=== PATIENT | female | born 1970 | race Two or more races ===

== ENCOUNTER → 2017-01-28 | Outpatient (REF) | payer MEDICAID, OTHER ==
[2017-01-28 13:38] LABS: ALBUMIN 3.8 GM/DL (3.2-5.2); ALBUMIN/GLOBULIN RATIO 1.12 (1.00-1.93); ALKALINE PHOSPHATASE 52 U/L (45-117); ALT/SGPT 24 U/L (12-78); ANION GAP 6 MEQ/L (8-16); AST/SGOT 10 U/L (15-37); BILIRUBIN,TOTAL 0.4 MG/DL (0.2-1.0); BLOOD UREA NITROGEN 17 MG/DL (7-18); CALCIUM LEVEL 9.2 MG/DL (8.5-10.1); CARBON DIOXIDE LEVEL 29 MEQ/L (21-32); CHLORIDE LEVEL 105 MEQ/L (98-107); CHOLESTEROL LEVEL 185 MG/DL (<200); CREATININE FOR GFR 0.82 MG/DL (0.55-1.02); GLOMERULAR FILTRATION RATE > 60.0 (>58); GLUCOSE, FASTING 92 MG/DL (70-105); POTASSIUM SERUM 4.2 MEQ/L (3.5-5.1); SODIUM LEVEL 140 MEQ/L (136-145); TOTAL PROTEIN 7.2 GM/DL (6.4-8.2); TRIGLYCERIDES LEVEL 131 MG/DL (<150)
== END ==
LOC: M SFHCPLAZ 10:04
PROVIDERS: ATTEND Family Medicine
DX: Z83.49 Family history of other endocrine, nutritional and metabolic diseases (principal); E66.01 Morbid (severe) obesity due to excess calories

== ENCOUNTER → 2017-04-21 | Outpatient (REF) | payer OTHER ==
[2017-04-21 16:29] LABS: ESTRADIOL < 19.0 PG/ML; LUTEINIZING HORMONE 9.4 mIU/mL
[2017-04-21 16:30] LABS: FOLLICLE STIMULATING HORMONE 19.4 mIU/mL
== END ==
LOC: M SFHCPLAZ 13:51
PROVIDERS: ATTEND Family Medicine
DX: E28.39 Other primary ovarian failure (principal)

== ENCOUNTER → 2017-05-30 | Outpatient (REF) | payer OTHER ==
[2017-05-30 15:01] LABS: ESTIMATED AVERAGE GLUCOSE 128 MG/DL (60-110); HEMOGLOBIN A1c 6.1 %
[2017-05-30 15:19] LABS: ALBUMIN 4.5 GM/DL (3.2-5.2); ALBUMIN/GLOBULIN RATIO 1.32 (1.00-1.93); ALKALINE PHOSPHATASE 53 U/L (45-117); ALT/SGPT 45 U/L (12-78); ANION GAP 7 MEQ/L (8-16); AST/SGOT 19 U/L (7-37); BILIRUBIN,TOTAL 0.4 MG/DL (0.2-1.0); BLOOD UREA NITROGEN 16 MG/DL (7-18); CALCIUM LEVEL 9.6 MG/DL (8.5-10.1); CARBON DIOXIDE LEVEL 29 MEQ/L (21-32); CHLORIDE LEVEL 106 MEQ/L (98-107); CREATININE FOR GFR 1.02 MG/DL (0.55-1.02); FREE T4 1.07 NG/DL (0.76-1.46); GLOMERULAR FILTRATION RATE > 60.0 (>58); GLUCOSE, FASTING 112 MG/DL (70-100); POTASSIUM SERUM 3.8 MEQ/L (3.5-5.1); RHEUMATOID FACTOR QUANT < 10.0 IU/ML (0-15.0); SODIUM LEVEL 142 MEQ/L (136-145); TOTAL PROTEIN 7.9 GM/DL (6.4-8.2); URIC ACID 5.6 MG/DL (2.6-6.0)
== END ==
LOC: M SFHCPLAZ 11:39
DX: R60.1 Generalized edema (principal); E66.01 Morbid (severe) obesity due to excess calories; R73.03 Prediabetes; M25.541 Pain in joints of right hand
CPT/HCPCS: 84443

== ENCOUNTER → 2017-07-22 | Outpatient (REF) | payer OTHER ==
[2017-07-22 12:47] LABS: C REACTIVE PROTEIN QUANTITATIV < 0.30 MG/DL (0.00-0.30)
[2017-07-22 12:59] LABS: ERYTHROCYTE SEDIMENTATION RATE 12 mm/hr (0-20)
[2017-07-25 00:07] LABS: CYCLIC CITRULLINATED PEPTIDE 3 units (0-19)
[2017-07-25 00:07] LABS: ANA (HEP2) Negative (.); ANTI DOUBLE STRAND-DNA AB 2 IU/mL (0-9)
== END ==
LOC: M SFHCPLAZ 08:17
DX: M13.0 Polyarthritis, unspecified (principal)

== ENCOUNTER → 2017-07-31 | Outpatient (REF) | payer OTHER ==
[2017-08-02 14:19] LABS: Lyme Disease IgG/IgM Antibodie <0.91 ISR (0.00-0.90); Lyme Disease IgM Ab Quantitati <0.80 index (0.00-0.79)
== END ==
LOC: M SFHCPLAZ 10:48
DX: M13.0 Polyarthritis, unspecified (principal)
CPT/HCPCS: 36415

== ENCOUNTER → 2017-12-03 | Outpatient (CLI) | payer BC | LOC: M RAD 09:59 | DX: R22.42 Localized swelling, mass and lump, left lower limb (principal); M25.775 Osteophyte, left foot; M25.572 Pain in left ankle and joints of left foot; M79.662 Pain in left lower leg | CPT/HCPCS: 73610 ==

== ENCOUNTER → 2018-09-01 | Outpatient (REF) | payer BC ==
[2018-09-03 14:51] LABS: HPV HYBRID CAPTURE II Positive (Negative)
== END ==
LOC: M SFHCWAGY 10:59
PROVIDERS: ATTEND Nurse Practitioner Women's Health
DX: Z12.4 Encounter for screening for malignant neoplasm of cervix (principal); Z11.51 Encounter for screening for human papillomavirus (HPV)
CPT/HCPCS: 87624; G0123

== ENCOUNTER → 2018-09-30 | Outpatient (CLI) | payer BC ==
--- NOTE | 2018-09-30 16:35 | REP ---
Clinical: Pelvic pain and bloating. Technique: Transabdominal pelvic ultrasound followed by transvaginal examination for better evaluation of the endometrium and adnexa. Findings: Bladder is unremarkable and measures 10.2 x 8.2 x 6.4 cm. Normal anteverted uterus measures 8.6 x 2.7 x 4.4 cm. Endometrial complex measures 3.8 mm. No discrete uterine or endometrial abnormalities appreciated. The bilateral ovaries are normal in appearance. Right ovary measures 2.0 x 2.5 x 0.8 cm. Left ovary measures 1.7 x 1.6 x 0.7 cm. No pelvic free fluid or adnexal mass lesion. Impression: Normal pelvic ultrasound.
--- NOTE | 2018-10-01 14:51 | REPMRS ---
Patient History The patient states she had a clinical breast exam in 09/2018. Patient is postmenopausal. Family history of breast cancer at age 50 or over in paternal grandmother, colorectal cancer at age 50 or over and pancreatic cancer at age 50 or over in paternal grandfather, endometrial cancer at age 48 in mother. Took hormonal contraceptives for 14 years. 3D TOMOSYNTHESIS WAS PERFORMED. Digital Woman Screen Mammo: September 30, 2018 - Exam #: [id number] Bilateral CC and MLO view(s) were taken. Technologist: Denise Bourne Technologist FINDINGS: There are scattered fibroglandular densities. There has been no change in the appearance of the mammogram from the prior studies. There is a mild amount of residual fibroglandular tissue which is fairly symmetric. There is no interval development of dominant mass, architectural distortion, or clustered microcalcification suggestive of malignancy. Assessment: BI-RADS/ACR category 1 mammogram. Negative Mammogram. Recommendation Routine screening mammogram in 1 year (for women over age 40). This mammogram was interpreted with the aid of an FDA-approved computer-aided dectection system. Electronically Signed By: Homer Gonsalves MD 10/01/18 2164
== END ==
LOC: M WHC 14:13
PROVIDERS: ATTEND Nurse Practitioner Women's Health
DX: R92.2 Inconclusive mammogram (principal); Z80.49 Family history of malignant neoplasm of other genital organs; R14.0 Abdominal distension (gaseous); Z78.0 Asymptomatic menopausal state; Z92.0 Personal history of contraception

== ENCOUNTER → 2018-12-11 | Outpatient (REF) | payer BC ==
[~2018-12-11] MED LIST: CHLO125TA PO; COZA100T2 PO; CYCL10TA PO; DULO1CAP6 PO; FAMC250T3 PO; POTA1TAB23 PO
[2018-12-11 13:49] LABS: RUBELLA IgG QUALITATIVE IMMUNE (IMMUNE)
[2018-12-12 10:10] LABS: MUMPS VIRUS IgG ANTIBODY 20.4 AU/mL (Immune >10.9)
== END ==
LOC: M SFHCPLAZ 11:29
PROVIDERS: ATTEND Family Medicine
DX: Z78.9 Other specified health status (principal)

== ENCOUNTER 2018-12-21 06:40 | Day surgery (SDC) | payer BC ==
[~2018-12-21] VITALS: Ht 172.7 cm; Wt 108.0 kg
[2018-12-21] MEDS ORDERED: LIDOCAINE 2% INJ 100 MG/5 ML SDV (FOR ANES.) As Ordered ONE (06:57)
[2018-12-21] MEDS ORDERED: PROPOFOL 200 MG/20 ML VIAL As Ordered ONE (06:57)
--- NOTE | 2018-12-21 08:11 | ROOR ---
Patient Name: Tessie Robledo Procedure Date: 12/21/2018 7:32 AM Date of : 1970 Age: 48 Room: [facility] Gender: Female Note Status: Finalized Procedure: Colonoscopy Indications: Screening for colorectal malignant neoplasm Providers: Teddy Guerrero MD Referring MD: Benja RUSSELL MD Requesting Provider: Medicines: Monitored Anesthesia Care Complications: No immediate complications. Procedure: Pre-Anesthesia Assessment: - Prior to the procedure, a History and Physical was performed, and patient medications and allergies were reviewed. The patient is competent. The risks and benefits of the procedure and the sedation options and risks were discussed with the patient. All questions were answered and informed consent was obtained. Patient identification and proposed procedure were verified by the physician, the nurse and the anesthesiologist in the procedure room. Mental Status Examination: alert and oriented. Airway Examination: normal oropharyngeal airway and neck mobility. Respiratory Examination: clear to auscultation. CV Examination: normal. Prophylactic Antibiotics: The patient does not require prophylactic antibiotics. Prior Anticoagulants: The patient has taken no previous anticoagulant or antiplatelet agents. ASA Grade Assessment: II - A patient with mild systemic disease. After reviewing the risks and benefits, the patient was deemed in satisfactory condition to undergo the procedure. The anesthesia plan was to use monitored anesthesia care (MAC). Immediately prior to administration of medications, the patient was re-assessed for adequacy to receive sedatives. The heart rate, respiratory rate, oxygen saturations, blood pressure, adequacy of pulmonary ventilation, and response to care were monitored throughout the procedure. The physical status of the patient was re-assessed after the procedure. The Colonoscope was introduced through the anus and advanced to the terminal ileum, with identification of the appendiceal orifice and IC valve. The colonoscopy was performed without difficulty. The patient tolerated the procedure well. The quality of the bowel preparation was good. The terminal ileum, ileocecal valve, appendiceal orifice, and rectum were photographed. Scope insertion time was 3 minutes. Scope withdrawal time was 9 minutes. The total duration of the procedure was 12 minutes. Findings: The perianal and digital rectal examinations were normal. The terminal ileum appeared normal. A 4 mm polyp was found in the transverse colon. The polyp was sessile. The polyp was removed with a jumbo cold forceps. Resection and retrieval were complete. Verification of patient identification for the specimen was done by the physician and nurse using the patient's name, date and medical record number. Estimated blood loss was minimal. Two sessile polyps were found in the recto-sigmoid colon. The polyps were 5 to 8 mm in size. These polyps were removed with a jumbo cold forceps. Resection and retrieval were complete. Multiple small and large-mouthed diverticula were found from sigmoid to transverse colon. There was no evidence of diverticular bleeding. Non-bleeding external and internal hemorrhoids were found during retroflexion. The hemorrhoids were medium-sized. Impression: - The examined portion of the ileum was normal. - One 4 mm polyp in the transverse colon, removed with a jumbo cold forceps. Resected and retrieved. - Two 5 to 8 mm polyps at the recto-sigmoid colon, removed with a jumbo cold forceps. Resected and retrieved. - Moderate diverticulosis from sigmoid to transverse colon. There was no evidence of diverticular bleeding. - Non-bleeding external and internal hemorrhoids. Recommendation: - Patient has a contact number available for emergencies. The signs and symptoms of potential delayed complications were discussed with the patient. Return to normal activities tomorrow. Written discharge instructions were provided to the patient. - High fiber diet. - Continue present medications. - Await pathology results. - Repeat colonoscopy in 3 - 5 years for surveillance based on pathology results. - Telephone GI clinic for pathology results in 2 weeks. - Return to primary care physician. Teddy Guerrero MD Teddy Guerrero MD 12/21/2018 8:10:33 AM Electronically signed by Teddy Guerrero MD Number of Addenda: 0 Note Initiated On: 12/21/2018 7:32 AM Estimated Blood Loss: Estimated blood loss was minimal.
[2018-12-21 08:33] VITALS: BP 165/98
[2018-12-21] MEDS ORDERED: NS 1,000 ML IV ONE (14:15)
== END 2018-12-21 08:34 | disposition home or self-care (01) ==
LOC: M OPP 06:40
PROVIDERS: ATTEND Internal Medicine Gastroenterology
DX: Z12.11 Encounter for screening for malignant neoplasm of colon (principal); K64.8 Other hemorrhoids; D12.3 Benign neoplasm of transverse colon; K63.5 Polyp of colon; K57.30 Diverticulosis of large intestine without perforation or abscess without bleeding; M79.7 Fibromyalgia; F32.9 Major depressive disorder, single episode, unspecified; Z79.899 Other long term (current) drug therapy; Z88.1 Allergy status to other antibiotic agents; Z91.018 Allergy to other foods; Z87.891 Personal history of nicotine dependence

== ENCOUNTER → 2019-03-30 | Outpatient (CLI) | payer BC ==
[~2019-03-30] MED LIST changes: +PROHANCE 279.3MG/ML 15ML VIAL (A9576) As Ordered ONE; +PROHANCE 279.3MG/ML 5ML VIAL (A9576) As Ordered ONE
--- NOTE | 2019-03-30 20:39 | REP ---
BILATERAL BREAST MRI WITH AND WITHOUT CONTRAST: HISTORY: Extensive family history of breast cancer, high risk patient. Comparison mammogram 09/30/2018. TECHNIQUE: Multiple sequences obtained in the axial, coronal and sagittal planes prior to and following the intravenous administration of 20 mL ProHance. Images are evaluated in the [employer] software including dynamic axial T1 FS images, color overlay images, subtraction images, CAD images, and MIP reconstruction images. There is mild breast parenchyma scattered bilaterally. There is mild background parenchymal enhancement. No significant cystic change is seen. There is an intramammary lymph node laterally in each breast. No axillary adenopathy is seen. There is no suspicious enhancing mass or morphologic abnormality. IMPRESSION: BI-RADS category 1 negative bilateral breast MRI. No suspicious enhancing mass or morphologic abnormality. Electronically Signed by Homer Gonsalves MD 03/31/2019 10:07 A
== END ==
LOC: M RAD 15:48
PROVIDERS: ATTEND Nurse Practitioner Women's Health
DX: Z12.39 Encounter for other screening for malignant neoplasm of breast (principal)
CPT/HCPCS: A9576; C8908

== ENCOUNTER 2019-04-21 16:01 | Emergency (ER) | payer OTHER, BC ==
[~2019-04-21] VITALS: Ht 172.7 cm; Wt 109.1 kg
[~2019-04-21 16:01] MED LIST changes: -PROHANCE 279.3MG/ML 15ML VIAL (A9576) As Ordered ONE; -PROHANCE 279.3MG/ML 5ML VIAL (A9576) As Ordered ONE
[2019-04-21] MEDS ORDERED: KETOROLAC 60 MG/2 ML VIAL (J1885) IM ONE (16:30)
[2019-04-21] MEDS ORDERED: ONDANSETRON 4 MG ORAL DISINTEGRATING TAB (Q0162 PER 1MG) PO ONE (16:30)
--- NOTE | 2019-04-21 17:00 | REP ---
CT brain: 04/21/2019. Indication: Head trauma. Comparison: None. Technique: Unenhanced axial CT images of the brain were obtained from skull base to vertex. Coronal reconstructions were provided. Findings: There is no acute intracranial hemorrhage, acute cortical infarction, mass effect, hydrocephalus or acute calvarial fracture. Impression: No acute intracranial process. Electronically Signed by George Gipson DO 04/21/2019 04:52 P
--- NOTE | 2019-04-21 17:07 | REP ---
CT cervical spine: 04/21/2019. Indication: Cervical spine trauma. Comparison: None. Technique: Axial CT images of the cervical spine were obtained with coronal and sagittal reconstructions provided. Findings: There is no acute fracture, subluxation or dislocation. There is mild straightening of the cervical lordosis which is likely positional. No hemorrhage or additional acute post traumatic abnormalities within the spinal canal are detected. The visualized lungs are clear. Impression: No acute osseous injury of the cervical spine. Electronically Signed by George Gipson DO 04/21/2019 04:58 P
[2019-04-21] MEDS ORDERED: NORC1TAB7 PO (18:09)
[2019-04-21 18:27] VITALS: BP 127/71
--- NOTE | 2019-04-21 19:51 | REP ---
LEFT SHOULDER, THREE VIEWS: There is no evidence of an acute fracture, dislocation or intrinsic bone disease. IMPRESSION: No fracture or dislocation. Electronically Signed by Homer Gonsalves MD 04/21/2019 08:07 P
== END 2019-04-21 18:29 | disposition home or self-care (01) ==
LOC: EDBD 16:01 → M ED 16:01
DX: Z04.1 Encounter for examination and observation following transport accident (principal); T14.8XXA Other injury of unspecified body region, initial encounter; V49.49XA Driver injured in collision with other motor vehicles in traffic accident, initial encounter; Y92.410 Unspecified street and highway as the place of occurrence of the external cause; Z79.899 Other long term (current) drug therapy; Z88.1 Allergy status to other antibiotic agents; Z91.018 Allergy to other foods; Z87.891 Personal history of nicotine dependence
CPT/HCPCS: 70450; 72125; 73030; 96372; 99284; J1885; Q0162

== ENCOUNTER → 2019-12-10 | Outpatient (REF) | payer BC ==
[~2019-12-10] MED LIST changes: +CYCL-707 PO; -CYCL10TA PO; +FAMC250T PO; -FAMC250T3 PO; +NORC1TAB7 PO
[2019-12-28 11:57] LABS: DRVV SCREEN 41.1 SEC
[2020-01-08 03:22] LABS: APPEARANCE, URINE HAZY (CLEAR); BACTERIA, URINE AUTO NEGATIVE (NEGATIVE); BASO # 0.1 10^3/uL (0.0-0.2); BASO % 0.9 % (0.0-1.0); BILIRUBIN, URINE AUTO NEGATIVE (NEGATIVE); BLOOD, URINE BLOOD NEGATIVE (NEGATIVE); COLOR, URINE YELLOW (YELLOW); EOS # 0.2 10^3/uL (0.0-0.5); GLUCOSE, URINE (UA) AUTO NEGATIVE (NEGATIVE); HEMATOCRIT 47.1 % (36.0-47.0); HEMOGLOBIN 15.1 g/dl (12.0-15.5); KETONE, URINE AUTO NEGATIVE (NEGATIVE); LEUKOCYTE ESTERASE, URINE AUTO NEGATIVE (NEGATIVE); LYMPH # 2.5 10^3/uL (1.5-5.0); LYMPH % 33.8 % (24.0-44.0); MEAN CORPUSCULAR HEMOGLOBIN 31.7 pg (27.0-33.0); MEAN CORPUSCULAR HGB CONC 32.1 g/dl (32.0-36.5); MEAN CORPUSCULAR VOLUME 98.9 fl (80.0-96.0); MONO # 0.4 10^3/uL (0.0-0.8); MONO % 5.9 % (0.0-5.0); MUCUS, URINE SMALL (NEGATIVE); NEUTROPHILS # 4.3 10^3/uL (1.5-8.5); NEUTROPHILS % 57.3 % (36.0-66.0); NITRITE, URINE AUTO NEGATIVE (NEGATIVE); PLATELET COUNT, AUTOMATED 267 10^3/uL (150-450); PROTEIN, URINE AUTO NEGATIVE (NEGATIVE); RBC, URINE AUTO 0 /HPF (0-3); RED BLOOD COUNT 4.76 10^6/uL (4.00-5.40); SPECIFIC GRAVITY URINE AUTO 1.023 (1.002-1.035); SQUAMOUS EPITHELIAL CELL UR AU 1 /HPF (0-6); UROBILINOGEN, URINE AUTO 0.2 mg/dL (0.0-2.0); WBC, URINE AUTO 2 /HPF (0-3); WHITE BLOOD COUNT 7.5 10^3/uL (4.0-10.0)
[2020-01-17 09:11] LABS: FACTOR II PROTHROMBIN GENE AN SEE SEPARATE REPORT; FACTOR V LEIDEN FOR MEDINET See Separate Report; INSULIN LEVEL See Separate Report
[2020-01-24 21:36] LABS: C REACTIVE PROTEIN QUANTITATIV 0.35 MG/DL (0.00-0.30); CHOLESTEROL RISK RATIO 4.13 (<5); MAGNESIUM LEVEL 2.4 MG/DL (1.8-2.4)
[2020-01-24 21:39] LABS: MALB URINE SIEMENS 12.4 MG/L
== END ==
LOC: M SFHCPLAZ 12:13
PROVIDERS: ATTEND Family Medicine
DX: O22.30 Deep phlebothrombosis in pregnancy, unspecified trimester (principal); Z3A.00 Weeks of gestation of pregnancy not specified; O99.280 Endocrine, nutritional and metabolic diseases complicating pregnancy, unspecified trimester; E78.2 Mixed hyperlipidemia; O16.9 Unspecified maternal hypertension, unspecified trimester; O99.810 Abnormal glucose complicating pregnancy

== ENCOUNTER → 2019-12-20 | Outpatient (CLI) | payer BC ==
--- NOTE | 2020-01-05 08:32 | REPMRS ---
Patient History The patient states she had a clinical breast exam in December 2019. Patient is postmenopausal. Family history of breast cancer at age 50 or over in paternal grandmother, colorectal cancer at age 50 or over and pancreatic cancer at age 50 or over in paternal grandfather, endometrial cancer at age 48 in mother. Took hormonal contraceptives for 14 years. Digital Woman Screen Mammo: December 20, 2019 - Exam #: [id number] Bilateral CC and MLO view(s) were taken. Technologist: Alexandra Choudhary, Technologist Prior study comparison: September 30, 2018, bilateral digital woman screen mammo performed at [facility]. January 05, 2016, bilateral digital woman screen mammo, performed at [facility]. FINDINGS: The breast tissue is almost entirely fat. The Volpara volumetric breast density category is: A. There has been no change in the appearance of the mammogram from the prior studies. There is no interval development of dominant mass, architectural distortion, or grouped microcalcification typical of malignancy. 3-D tomosynthesis shows no additional findings. Assessment: BI-RADS/ACR category 1 mammogram. Negative Mammogram. Recommendation Routine screening mammogram of both breasts in 1 year (for women over age 40). This patient's Lifetime Breast Cancer RIsk is estimated at 13.8 %. This mammogram was interpreted with the aid of an FDA-approved computer-aided dectection system. Electronically Signed By: Jake Carr MD 01/05/20 0831
== END ==
LOC: M WHC 17:16
PROVIDERS: ATTEND Family Medicine
DX: Z12.31 Encounter for screening mammogram for malignant neoplasm of breast (principal); Z78.0 Asymptomatic menopausal state; Z80.49 Family history of malignant neoplasm of other genital organs

== ENCOUNTER → 2019-12-20 | Outpatient (REF) | payer BC, OTHER | LOC: M LAB REF 08:00 | PROVIDERS: ATTEND Nurse Practitioner Women's Health | DX: R87.610 Atypical squamous cells of undetermined significance on cytologic smear of cervix (ASC-US) (principal) | CPT/HCPCS: 87624; G0123 ==

== ENCOUNTER → 2020-04-11 | Outpatient (REF) | payer BC ==
[2020-04-11 16:06] LABS: BASO # 0.1 10^3/uL (0.0-0.2); BASO % 1.1 % (0.0-1.0); EOS # 0.2 10^3/uL (0.0-0.5); EOS % 2.1 % (0.0-3.0); HEMATOCRIT 46.2 % (36.0-47.0); HEMOGLOBIN 14.8 g/dl (12.0-15.5); LYMPH # 2.5 10^3/uL (1.5-5.0); LYMPH % 34.8 % (24.0-44.0); MEAN CORPUSCULAR HEMOGLOBIN 31.6 pg (27.0-33.0); MEAN CORPUSCULAR VOLUME 98.5 fl (80.0-96.0); MONO # 0.5 10^3/uL (0.0-0.8); MONO % 7.1 % (0.0-5.0); NEUTROPHILS % 54.8 % (36.0-66.0); PLATELET COUNT, AUTOMATED 275 10^3/uL (150-450); RED BLOOD COUNT 4.69 10^6/uL (4.00-5.40); WHITE BLOOD COUNT 7.3 10^3/uL (4.0-10.0)
[2020-04-11 16:10] LABS: APPEARANCE, URINE HAZY (CLEAR); BACTERIA, URINE AUTO 2+ (NEGATIVE); BILIRUBIN, URINE AUTO NEGATIVE (NEGATIVE); BLOOD, URINE BLOOD NEGATIVE (NEGATIVE); CALCIUM OXALATE CRYSTALS MODERATE; COLOR, URINE YELLOW (YELLOW); GLUCOSE, URINE (UA) AUTO NEGATIVE (NEGATIVE); KETONE, URINE AUTO NEGATIVE (NEGATIVE); LEUKOCYTE ESTERASE, URINE AUTO NEGATIVE (NEGATIVE); MUCUS, URINE SMALL (NEGATIVE); NITRITE, URINE AUTO NEGATIVE (NEGATIVE); PROTEIN, URINE AUTO NEGATIVE (NEGATIVE); RBC, URINE AUTO 2 /HPF (0-3); SQUAMOUS EPITHELIAL CELL UR AU 1 /HPF (0-6); UROBILINOGEN, URINE AUTO 0.2 mg/dL (0.0-2.0); WBC, URINE AUTO 5 /HPF (0-3)
[2020-04-11 16:19] LABS: ALBUMIN 3.9 GM/DL (3.2-5.2); ALT/SGPT 26 U/L (12-78); BILIRUBIN,TOTAL 0.1 MG/DL (0.2-1.0); BLOOD UREA NITROGEN 20 MG/DL (7-18); CALCIUM LEVEL 9.6 MG/DL (8.5-10.1); CARBON DIOXIDE LEVEL 32 MEQ/L (21-32); CHLORIDE LEVEL 104 MEQ/L (98-107); CREATININE FOR GFR 0.81 MG/DL (0.55-1.30); FREE T4 0.89 NG/DL (0.76-1.46); GLOMERULAR FILTRATION RATE > 60.0 (>51); GLUCOSE, FASTING 86 MG/DL (70-100); SODIUM LEVEL 139 MEQ/L (136-145); TOTAL PROTEIN 7.6 GM/DL (6.4-8.2); VITAMIN B12 LEVEL 540 PG/ML (247-911)
[2020-04-11 16:54] LABS: MALB URINE SIEMENS 18.7 MG/L; MAU/CREAT RATIO 16.6 MCG/MG (0.0-30.0)
[2020-04-13 10:54] LABS: ALBUMIN 4.21 GM/DL (3.29-5.55); ALBUMIN % 55.4 % (55.8-66.1); ALPHA-1-GLOBULIN % 4.7 % (2.9-4.9); ALPHA-1-GLOBULINS 0.36 GM/DL (0.17-0.41); ALPHA-2-GLOBULINS 0.82 GM/DL (0.42-0.99); ALPHA-2-GLOBULINS % 10.8 % (7.1-11.8); BETA-1-GLOBULINS 0.53 GM/DL (0.28-0.60); BETA-2-GLOBULINS 0.55 GM/DL (0.19-0.55); BETA-2-GLOBULINS % 7.3 % (3.2-6.5); GAMMA GLOBULIN % 14.8 % (11.1-18.8); GAMMA GLOBULINS 1.12 GM/DL (0.65-1.58)
[2020-04-14 05:07] LABS: CARDIOLIPIN IGA ANTIBODY <9 APL U/mL (0-11); CARDIOLIPIN IGG ANTIBODY <9 GPL U/mL (0-14); CARDIOLIPIN IGM ANTIBODY <9 MPL U/mL (0-12); INSULIN LEVEL 46.5 uIU/mL (2.6-24.9)
== END ==
LOC: M SFHCPLAZ 11:48
PROVIDERS: ATTEND Family Medicine
DX: R73.01 Impaired fasting glucose (principal); E78.2 Mixed hyperlipidemia; D75.89 Other specified diseases of blood and blood-forming organs; O22.30 Deep phlebothrombosis in pregnancy, unspecified trimester; A09 Infectious gastroenteritis and colitis, unspecified

== ENCOUNTER 2020-05-30 13:29 | Emergency (ER) | payer BC ==
[~2020-05-30] VITALS: Ht 172.7 cm; Wt 114.7 kg
[2020-05-30] MEDS ORDERED: CYCL-707 (13:37)
[2020-05-30] MEDS ORDERED: KETOROLAC 30 MG/ML 1ML VIAL IV ONE (14:00)
[2020-05-30 15:41] LABS: BASO # 0.1 10^3/uL (0.0-0.2); BASO % 0.7 % (0.0-1.0); EOS # 0.2 10^3/uL (0.0-0.5); EOS % 2.1 % (0.0-3.0); HEMATOCRIT 41.7 % (36.0-47.0); HEMOGLOBIN 13.7 g/dl (12.0-15.5); LYMPH # 2.7 10^3/uL (1.5-5.0); LYMPH % 36.2 % (24.0-44.0); MEAN CORPUSCULAR HEMOGLOBIN 31.5 pg (27.0-33.0); MEAN CORPUSCULAR HGB CONC 32.9 g/dl (32.0-36.5); MEAN CORPUSCULAR VOLUME 95.9 fl (80.0-96.0); MONO # 0.6 10^3/uL (0.0-0.8); MONO % 7.5 % (0.0-5.0); NEUTROPHILS % 53.2 % (36.0-66.0); PLATELET COUNT, AUTOMATED 247 10^3/uL (150-450); RED BLOOD COUNT 4.35 10^6/uL (4.00-5.40); WHITE BLOOD COUNT 7.5 10^3/uL (4.0-10.0)
[2020-05-30] MEDS ORDERED: MORPHINE 2 MG/ML 1ML VIAL (J2270) IV ONE (15:45)
[2020-05-30 16:06] LABS: ALBUMIN 3.9 GM/DL (3.2-5.2); ALT/SGPT 24 U/L (12-78); AMYLASE 49 U/L (25-115); BILIRUBIN,DIRECT 0.1 MG/DL (0.0-0.2); BILIRUBIN,TOTAL 0.3 MG/DL (0.2-1.0); BLOOD UREA NITROGEN 24 MG/DL (7-18); CALCIUM LEVEL 9.7 MG/DL (8.5-10.1); CARBON DIOXIDE LEVEL 34 MEQ/L (21-32); CHLORIDE LEVEL 101 MEQ/L (98-107); CREATININE FOR GFR 0.84 MG/DL (0.55-1.30); GLOMERULAR FILTRATION RATE > 60.0 (>51); GLUCOSE, FASTING 79 MG/DL (70-100); LIPASE 219 U/L (73-393); POTASSIUM SERUM 3.3 MEQ/L (3.5-5.1); SODIUM LEVEL 139 MEQ/L (136-145); TOTAL PROTEIN 7.4 GM/DL (6.4-8.2)
[2020-05-30] MEDS ORDERED: POTASSIUM CHLORIDE 10 MEQ SR TABLET PO ONE (16:30)
[2020-05-30] MEDS ORDERED: ISOVUE-370 76% 100ML VIAL As Ordered ONE (16:32)
--- NOTE | 2020-05-30 17:06 | REP ---
INDICATION: left flank pain. COMPARISON: None TECHNIQUE: 100 cc Isovue 370 intravenously FINDINGS: The lung bases are clear. Surgical clips are seen in the gallbladder fossa from previous cholecystectomy. There are no enhancing hepatic lesions. The spleen, pancreas, adrenal glands, and right kidney are within normal limits. In the inferior pole of the left kidney there is a 5 mm sized calcification which is not causing obstructive phenomena. The left kidney is otherwise unremarkable. The abdominal aorta and para-aortic regions are within normal limits. The bowel loops and the mesenteries are within normal limits. There is no mass or adenopathy. There is no free fluid or free air. The osseous structures are within normal limits. IMPRESSION: There is a single tiny nonobstructing left nephrolith as described above. The examination is otherwise unremarkable. <Electronically signed by Placido Levi > 05/30/20 1720
[2020-05-30] MEDS ORDERED: RAPA4CAP PO (17:43)
[2020-05-30] MEDS ORDERED: IBUP-1022 PO (17:43)
[2020-05-30 18:00] VITALS: BP 144/75
== END 2020-05-30 18:02 | disposition home or self-care (01) ==
LOC: M ED 13:29
DX: N20.0 Calculus of kidney (principal); E87.6 Hypokalemia; Z88.1 Allergy status to other antibiotic agents; Z91.018 Allergy to other foods; Z79.899 Other long term (current) drug therapy
CPT/HCPCS: 74177; 80048; 80076; 82150; 83605; 83690; 85025; 96374; 96375; 99284; J1885; J2270; Q9967

== ENCOUNTER → 2020-09-08 | Outpatient (CLI) | payer BC ==
[~2020-09-08] MED LIST changes: +CYCL-707; +IBUP-1022 PO; +RAPA4CAP PO
[2020-09-08 18:22] LABS: BASO # 0.1 10^3/uL (0.0-0.2); BASO % 1.1 % (0.0-1.0); EOS # 0.3 10^3/uL (0.0-0.5); EOS % 3.3 % (0.0-3.0); HEMOGLOBIN 14.7 g/dl (12.0-15.5); LYMPH # 2.3 10^3/uL (1.5-5.0); LYMPH % 28.7 % (24.0-44.0); MEAN CORPUSCULAR HEMOGLOBIN 31.6 pg (27.0-33.0); MEAN CORPUSCULAR HGB CONC 32.7 g/dl (32.0-36.5); MEAN CORPUSCULAR VOLUME 96.8 fl (80.0-96.0); MONO # 0.6 10^3/uL (0.0-0.8); MONO % 7.3 % (2.0-8.0); NEUTROPHILS # 4.8 10^3/uL (1.5-8.5); NEUTROPHILS % 59.4 % (36.0-66.0); PLATELET COUNT, AUTOMATED 280 10^3/uL (150-450); RED BLOOD COUNT 4.65 10^6/uL (4.00-5.40); WHITE BLOOD COUNT 8.1 10^3/uL (4.0-10.0)
[2020-09-08 18:29] LABS: COLLAGEN EPINEPHRINE 105 SECONDS (74-162)
[2020-09-08 18:34] LABS: INR 0.96
[2020-09-08 18:35] LABS: PARTIAL THROMBOPLASTIN TIME 27.5 SECONDS (24.2-38.5)
[2020-09-08 18:41] LABS: BLOOD UREA NITROGEN 24 MG/DL (7-18); CARBON DIOXIDE LEVEL 33 MEQ/L (21-32); CHLORIDE LEVEL 102 MEQ/L (98-107); CREATININE FOR GFR 0.88 MG/DL (0.55-1.30); GLOMERULAR FILTRATION RATE > 60.0 (>51); GLUCOSE, FASTING 101 MG/DL (70-100); POTASSIUM SERUM 3.7 MEQ/L (3.5-5.1); SODIUM LEVEL 141 MEQ/L (136-145)
[2020-09-08 18:42] LABS: ALBUMIN 4.1 GM/DL (3.2-5.2); ALT/SGPT 29 U/L (12-78); BILIRUBIN,TOTAL 0.3 MG/DL (0.2-1.0); C REACTIVE PROTEIN QUANTITATIV 0.47 MG/DL (0.00-0.30); CALCIUM LEVEL 9.8 MG/DL (8.5-10.1); CHOLESTEROL LEVEL 209 MG/DL (<200); CHOLESTEROL RISK RATIO 4.098 (<5); HDL CHOLESTEROL 51 MG/DL (>40); LDL CHOLESTEROL 116 MG/DL (<100); NON-HDL-C 158 MG/DL; NT-PRO BNP 13 PG/ML (<125); TOTAL PROTEIN 7.9 GM/DL (6.4-8.2); TRIGLYCERIDES LEVEL 210 MG/DL (<150)
[2020-09-08 18:49] LABS: TOTAL 25(OH) VITAMIN D 40.4 NG/ML (30.0-100.0)
[2020-09-08 18:50] LABS: PTH INTACT 22.5 PG/ML (18.5-88.0)
[2020-09-08 18:51] LABS: HEMOGLOBIN A1c 6.2 %
== END ==
LOC: M LAB 17:35
PROVIDERS: ATTEND Family Medicine
DX: R23.8 Other skin changes (principal); E55.9 Vitamin D deficiency, unspecified; R73.01 Impaired fasting glucose; E78.2 Mixed hyperlipidemia; I10 Essential (primary) hypertension

== ENCOUNTER 2020-11-19 12:52 | Emergency (ER) | payer BC ==
[~2020-11-19] VITALS: Ht 175.3 cm; Wt 109.1 kg
[2020-11-19] MEDS ORDERED: GABA600T4 (13:06)
[2020-11-19] MEDS ORDERED: PANT40TA29 (13:06)
[2020-11-19 13:22] LABS: BASO # 0.1 10^3/uL (0.0-0.2); EOS # 0.2 10^3/uL (0.0-0.5); EOS % 2.6 % (0.0-3.0); HEMATOCRIT 43.5 % (36.0-47.0); HEMOGLOBIN 14.4 g/dl (12.0-15.5); LYMPH # 2.8 10^3/uL (1.5-5.0); LYMPH % 40.5 % (24.0-44.0); MEAN CORPUSCULAR HEMOGLOBIN 31.4 pg (27.0-33.0); MEAN CORPUSCULAR HGB CONC 33.1 g/dl (32.0-36.5); MONO # 0.6 10^3/uL (0.0-0.8); MONO % 8.4 % (2.0-8.0); NEUTROPHILS # 3.3 10^3/uL (1.5-8.5); NEUTROPHILS % 47.4 % (36.0-66.0); PLATELET COUNT, AUTOMATED 290 10^3/uL (150-450); RED BLOOD COUNT 4.58 10^6/uL (4.00-5.40); WHITE BLOOD COUNT 6.9 10^3/uL (4.0-10.0)
--- NOTE | 2020-11-19 13:32 | REP ---
INDICATION: CHEST PAIN. COMPARISON: Lung windows from CT abdomen 05/30/2020 TECHNIQUE: AP portable seated. FINDINGS: Lungs are well inflated. No gross effusion, lateral pleural thickening or acute infiltrate. There is curvilinear focus of taste the left heart border corresponding to pleural reflection/scar seen on CT at the anterior left lung base. The heart is not enlarged. There is no vascular redistribution, chamber enlarged, widening of mediastinum or asymmetry of the ash[place]. The aorta is normal. Airway is intact. Bones without acute finding. There is no free air under the diaphragm. IMPRESSION: 1. No acute cardiopulmonary change. <Electronically signed by Bogdan Mendoza > 11/19/20 [id number]
[2020-11-19] MEDS ORDERED: GABA-283 PO (13:37)
[2020-11-19] MEDS ORDERED: D31000TA2 PO (13:37)
[2020-11-19 13:57] LABS: ALBUMIN 3.9 GM/DL (3.2-5.2); ALT/SGPT 28 U/L (12-78); BILIRUBIN,DIRECT < 0.1 MG/DL (0.0-0.2); BILIRUBIN,TOTAL 0.4 MG/DL (0.2-1.0); BLOOD UREA NITROGEN 21 MG/DL (7-18); CARBON DIOXIDE LEVEL 29 MEQ/L (21-32); CHLORIDE LEVEL 104 MEQ/L (98-107); CK-MB VALUE MASS 1.3 NG/ML (<3.6); CPK CREATINE PHOSPHOKINASE 108 U/L (26-192); CREATININE FOR GFR 0.86 MG/DL (0.55-1.30); GLOMERULAR FILTRATION RATE > 60.0 (>51); GLUCOSE, FASTING 135 MG/DL (70-100); LIPASE 137 U/L (73-393); POTASSIUM SERUM 4.1 MEQ/L (3.5-5.1); SODIUM LEVEL 140 MEQ/L (136-145); TOTAL PROTEIN 7.5 GM/DL (6.4-8.2); TROPONIN I < 0.02 NG/ML (< 0.10)
[2020-11-19] MEDS ORDERED: GI COCKTAIL 50ML BTL(HYOSCYAMINE/MAALOX/LIDOCAINE VISCOUS)(1:3:1) PO ONE (14:05)
[2020-11-19] MEDS ORDERED: ISOVUE-370 76% 100ML VIAL As Ordered ONE (14:43)
[2020-11-19] MEDS ORDERED: ASPIRIN 81 MG CHEW TABLET PO ONE (14:45)
[2020-11-19] MEDS ORDERED: MORPHINE 2 MG/ML 1ML VIAL (J2270) IV ONE (15:10)
--- NOTE | 2020-11-19 16:03 | REP ---
INDICATION: r/o PE. COMPARISON: 11/19/2020 AP chest TECHNIQUE: CT angiogram chest performed following the intravenous administration of 75 cc of Isovue 370. Sagittal and coronal MIP and standard reconstruction images are performed. FINDINGS: Lungs: There is an 8 mm semi solid nodule on image 37 in the superior segment right lower lobe abutting the pleura this is not visible radiographically. There is a patchy of zone of the dependent atelectatic change medial basal segment right lower lobe. No other lung findings.. Mediastinum: No adenopathy or mass. Pulmonary arteries: No evidence of pulmonary embolism. Krys: No adenopathy. Axilla: No adenopathy. Pleura: No effusion. Heart: Not enlarged. Thoracic aorta: No aneurysm or dissection. Upper abdominal structures: Prior cholecystectomy. Visualized liver, spleen, adrenal glands and upper pole of right kidney unremarkable. No hiatal hernia. Visualized osseous structures: Unremarkable. IMPRESSION: No CT evidence of pulmonary embolism. An 8 mm semi solid nodule pleural based superior segment right lower lobe on image 37. Using Fleischner society criteria for pulmonary nodule evaluation, new partly solid nodules of this size warrant follow-up in 6 months by low-dose screening CT. No other findings. <Electronically signed by Bogdan Mendoza > 11/19/20 1600
[2020-11-19 17:21] LABS: CK-MB VALUE MASS 1.4 NG/ML (<3.6); CPK CREATINE PHOSPHOKINASE 64 U/L (26-192); MB/CK RELATIVE INDEX 2.19 (< OR =4); TROPONIN I < 0.02 NG/ML (< 0.10)
[2020-11-19 20:17] LABS: CK-MB VALUE MASS < 1.0 NG/ML (<3.6); CPK CREATINE PHOSPHOKINASE 58 U/L (26-192); MB/CK RELATIVE INDEX 1.72 (< OR =4); TROPONIN I < 0.02 NG/ML (< 0.10)
[2020-11-19 21:00] VITALS: BP 116/67
--- NOTE | 2020-11-19 22:16 | ECGEPIP ---
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
--- NOTE | 2020-11-19 22:18 | ECGEPIP ---
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
--- NOTE | 2020-11-20 10:08 | ED PDOC ---
Post-Departure Follow-Up dr cardoso faxed formal report of cta chest for fu.Laura Tovar MD Nov 20, 2020 10:08
== END 2020-11-19 21:19 | disposition home or self-care (01) ==
LOC: M ED 12:52
DX: R07.89 Other chest pain (principal); R06.02 Shortness of breath; I10 Essential (primary) hypertension; Z86.718 Personal history of other venous thrombosis and embolism; Z79.899 Other long term (current) drug therapy; Z88.1 Allergy status to other antibiotic agents; Z91.018 Allergy to other foods
CPT/HCPCS: 36415; 71045; 71275; 80048; 80076; 82550; 82553; 83690; 84484; 85025; 93005; 93041; 94760; 96374; 99285; J2270; Q9967

== ENCOUNTER → 2021-06-26 | Outpatient (CLI) | payer BC ==
[~2021-06-26] MED LIST changes: +D31000TA2 PO; +GABA-283 PO; +GABA600T4; +GASTROGRAFIN SOLUTION 30ML (Q9963) As Ordered ONE; +ISOVUE-370 76% 100ML VIAL As Ordered ONE; +PANT40TA29
== END ==
LOC: M RAD 14:32
PROVIDERS: ATTEND Family Medicine
DX: N20.0 Calculus of kidney (principal)

== ENCOUNTER 2021-09-28 17:55 | Emergency (ER) | payer BC ==
[~2021-09-28 17:55] MED LIST changes: -D31000TA2 PO; -GASTROGRAFIN SOLUTION 30ML (Q9963) As Ordered ONE; -ISOVUE-370 76% 100ML VIAL As Ordered ONE; +VITA100093 PO
[2021-09-28] MEDS ORDERED: methylPREDNISolone 125MG 2ML VIAL IV ONE (20:00)
[2021-09-28] MEDS ORDERED: FAMOTIDINE 20MG/2ML VIAL IVP ONE (20:00)
[2021-09-28] MEDS ORDERED: diphenhydrAMINE 50MG/ML VIAL (J1200) IV ONE (20:00)
[2021-09-28 22:38] VITALS: BP 128/75
== END 2021-09-28 22:43 | disposition home or self-care (01) ==
LOC: M ED 17:55
DX: T78.40XA Allergy, unspecified, initial encounter (principal); R21 Rash and other nonspecific skin eruption; L50.9 Urticaria, unspecified; K21.9 Gastro-esophageal reflux disease without esophagitis; M79.7 Fibromyalgia; Z86.718 Personal history of other venous thrombosis and embolism; Z87.891 Personal history of nicotine dependence; F32.A Depression, unspecified; F41.9 Anxiety disorder, unspecified; Z88.1 Allergy status to other antibiotic agents; Z79.899 Other long term (current) drug therapy
CPT/HCPCS: 96374; 96375; 99284; J1200; J2930

== ENCOUNTER → 2021-11-16 | Outpatient (CLI) | payer BC ==
[2021-11-16 13:44] LABS: ALBUMIN 3.7 GM/DL (3.2-5.2); ALT/SGPT 24 U/L (12-78); BILIRUBIN,TOTAL 0.4 MG/DL (0.2-1.0); BLOOD UREA NITROGEN 24 MG/DL (7-18); CALCIUM LEVEL 9.9 MG/DL (8.5-10.1); CARBON DIOXIDE LEVEL 30 MEQ/L (21-32); CHLORIDE LEVEL 105 MEQ/L (98-107); CREATININE FOR GFR 0.91 MG/DL (0.55-1.30); GLOMERULAR FILTRATION RATE > 60.0 (>51); GLUCOSE, FASTING 133 MG/DL (70-100); MAGNESIUM LEVEL 2.3 MG/DL (1.8-2.4); NT-PRO BNP 11 PG/ML (<125); POTASSIUM SERUM 4.5 MEQ/L (3.5-5.1); SODIUM LEVEL 142 MEQ/L (136-145); TOTAL PROTEIN 7.1 GM/DL (6.4-8.2)
[2021-11-16 14:08] LABS: HEMOGLOBIN A1c 6.5 %
[2021-11-16 14:11] LABS: MAU/CREAT RATIO 12.3 MCG/MG (0.0-30.0)
[2021-11-16 14:57] LABS: VITAMIN B12 LEVEL 668 PG/ML (247-911)
== END ==
LOC: M PLALAB 09:44
PROVIDERS: ATTEND Family Medicine
DX: R73.01 Impaired fasting glucose (principal); I10 Essential (primary) hypertension; D75.89 Other specified diseases of blood and blood-forming organs